=== PATIENT | male | born 1995 | race Two or more races ===

== ENCOUNTER 2024-01-25 20:15 | Emergency (ER) | payer SELFPAY ==
[~2024-01-25] VITALS: Ht 162.6 cm; Wt 77.3 kg
[2024-01-25] MEDS ORDERED: PRED10TA23 PO (21:28)
[2024-01-25] MEDS: dexamethasone sod phosphate 10mg/ml inj IM STA (21:38)
[2024-01-25] MEDS: triamcinolone acetonide 40mg/ml inj IM STA (21:38)
[2024-01-25] MEDS: diphenhydrAMINE 50 mg/ml inj IM ONE (21:39)
[2024-01-25 21:43] VITALS: BP 154/82; PULSE 78; RESP 16; TEMP 98.1; O2SAT 99
== END 2024-01-25 21:44 | disposition home or self-care (01) ==
LOC: ER 20:16
DX: L23.7 Allergic contact dermatitis due to plants, except food (principal); R21 Rash and other nonspecific skin eruption
CPT/HCPCS: 96372; 99284; J1100; J1200; J3301